=== PATIENT | female | born 1985 | race Caucasian/White ===

== ENCOUNTER 2016-09-23 21:57 | Emergency (ER) | payer MEDICAID ==
[~2016-09-23 21:57] MED LIST: MACROBID 100 M100 M1 PO; NO HOME MEDICATION XX; ZOFRAN4 M2 PO
[2016-09-23] MEDS ORDERED: WELLBUTRIN SR150 M2 PO (22:29)
[2016-09-23] MEDS ORDERED: CYANOCOBAL1000 MCG/3 SC (22:31)
== END 2016-09-24 01:36 ==
LOC: EDMED 21:57
DX: O20.0 Threatened abortion (principal); Z3A.01 Less than 8 weeks gestation of pregnancy
CPT/HCPCS: J2791

== ENCOUNTER 2016-10-01 08:37 | Emergency (ER) | payer MEDICAID ==
[~2016-10-01 08:37] MED LIST changes: +CYANOCOBAL1000 MCG/3 SC; +WELLBUTRIN SR150 M2 PO
[2016-10-01 10:57] LABS: BASO % 0.3 % (0-2); EOS % 0.8 % (0-7); EOSINOPHIL ABSOLUTE COUNT 0.1 tho/cmm (0.0-0.7); HCT-HEMATOCRIT 33.1 % (34.0-49.0); HGB-HEMOGLOBIN 10.2 gm/dl (12.0-15.5); IMMATURE GRANULOCYTES ABSOLUTE 0.02 tho/cmm (0-0.03); IMMATURE GRANULOCYTES PERCENT 0.3 % (0-0.3); LYMPH % 26.9 % (20-45); LYMPH ABSOLUTE COUNT 1.7 tho/cmm (0.8-4.5); MCH (MEAN CORPUSCULAR HGB) 21.5 pg (28.0-32.0); MCHC MEAN CORPUSCULAR HGB CONC 30.8 % (32.0-36.0); MCV (MEAN CELL VOLUME) 69.7 fl (82.0-96.0); MEAN PLATELET VOLUME 10.8 cmc (9.4-12.4); MONO % 5.6 % (0-12); MONOCYTE ABSOLUTE COUNT 0.4 tho/cmm (0.0-1.2); NEUTROPHIL ABSOLUTE COUNT 4.2 tho/cmm (1.6-8.0); NEUTROPHIL-AUTOMATED 4.2 tho/cmm (1.6-8.0); NEUTROPHILS % 66.1 % (40-80); PLATELET COUNT 211 tho/cmm (150-450); RED BLOOD COUNT 4.75 mil/cmm (4.00-5.20); RED CELL DISTRIBUTION WIDTH 18.2 % (12.4-16.4); WHITE BLOOD COUNT 6.4 tho/cmm (4.0-10.0)
[2016-10-01 12:04] LABS: URINE BILIRUBIN NEGATIVE (NEG); URINE BLOOD LARGE (NEG); URINE GLUCOSE (UA) NEGATIVE (NEG); URINE KETONE NEGATIVE (NEG); URINE LEUKOCYTE ESTERASE POSITIVE (NEG); URINE NITRITE POSITIVE (NEG); URINE PROTEIN MODERATE (NEG); URINE SPECIFIC GRAVITY 1.005 (1.003-1.030)
[2016-10-01 12:09] LABS: URINE APPEARANCE HAZY; URINE COLOR RED
[2016-10-01 12:20] LABS: URINE RBC FULL FIELD /[HPF] (0-5)
[2016-10-01 12:24] LABS: URINE AMORPHOUS 3+
== END 2016-10-01 12:38 ==
LOC: EDMED 08:37
PROVIDERS: Emergency Medicine
DX: O20.0 Threatened abortion (principal); Z3A.01 Less than 8 weeks gestation of pregnancy